=== PATIENT | male | born 1985 | race Caucasian/White ===

== ENCOUNTER 2019-08-05 17:15 | Inpatient (IN) | payer MEDICAID ==
[~2019-08-05] VITALS: Ht 172.7 cm; Wt 94.1 kg
[2019-08-05 17:51] LABS: Basophils # (auto) 0.1 uL; Basophils % (auto) 0.9 % (0.0-2.0); Eosinophils # (auto) 0.5 uL; Eosinophils % (auto) 5.3 % (0.0-7.0); Hematocrit 49.1 % (41.0-53.0); Hemoglobin 16.7 g/dL (13.5-17.5); Lymphocytes # (auto) 1.5 uL; Lymphocytes % (auto) 16.8 % (10.0-50.0); Mean Corpuscular Hemoglobin 30.2 pg (28.0-32.0); Mean Corpuscular Hgb Conc. 34.1 g/dL (32.0-36.0); Mean Corpuscular Volume 88.5 fL (80.0-100.0); Monocytes # (auto) 0.7 uL; Monocytes % (auto) 8.2 % (0.0-12.0); Neutrophils # (auto) 5.9 uL; Neutrophils % (auto) 68.8 % (37.0-80.0); Platelet Count (auto) 295 10^3/uL (140-450); Red Blood Cells 5.55 10^6/uL (4.5-5.90); Red Cell Distribution Width 13.8 % (11.8-14.3); White Blood Cell 8.6 10^3/uL (4.4-10.8)
[2019-08-05 18:06] LABS: Albumin 4.2 g/dL (3.4-5.0); BUN/Creatinine Ratio 9.1; Calcium 8.7 mg/dL (8.5-10.1); Potassium 3.8 mmol/L (3.5-5.1)
[2019-08-05 18:08] LABS: Bilirubin, Total 0.7 mg/dL (0.2-1.0); Total Protein 8.1 g/dL (6.4-8.2)
[2019-08-05 19:09] LABS: Urine Bacteria NONE SEEN /hpf (None Seen); Urine Blood Negative /uL (Negative); Urine Mucus FEW (None Seen); Urine Specific Gravity 1.031 (1.001-1.035); Urine WBC 1 /hpf (0 - 3)
[2019-08-05] MEDS ORDERED: SODIUM CHLORIDE 0.9% 1,000 ML IV ONE ×2 (22:15→23:30)
[2019-08-05] MEDS ORDERED: MORPHINE SULFATE 4 MG/ML SYR/VIAL IV ONE (22:30)
[2019-08-05] MEDS ORDERED: ONDANSETRON HCL 4 MG/2 ML VIAL IV ONE (22:30)
[2019-08-06] MEDS ORDERED: HYDROmorphone HCL 2 MG/ML VL IM ONE (01:15)
[2019-08-06] MEDS ORDERED: FAMOTIDINE (10MG/ML) 2ML VL IV ONE (01:30)
[2019-08-06] MEDS ORDERED: TEMAZEPAM 15 MG CAP PO PRN (04:15)
[2019-08-06] MEDS ORDERED: MORPHINE SULFATE 4 MG/ML SYR/VIAL IV PRN (04:15)
[2019-08-06] MEDS ORDERED: ACETAMINOPHEN 325 MG TAB PO PRN (04:15)
[2019-08-06] MEDS ORDERED: AMOX250C3 PO (06:11)
[2019-08-06] MEDS ORDERED: MORPHINE SULF INJ 2 MG/ML SYRINGE 1ML IV PRN (06:45)
--- NOTE | 2019-08-06 07:02 | NUR ---
MS admit from ER [facility] admitted to tele/MS. Patient oriented to MARCIO COE RN primary RN, unit, room, bed, and unit policies regarding patient care and visiting hours. Patient weighed by bedscale and encouraged to call if they need something. Safety measures in place bed in lowest position, side rails x2, and call light within reach. All questions and concerns addressed, patient verbalized understanding.
[2019-08-06] MEDS: HYDROcodone-ACET 5/325MG TAB PO PRN ×3 (07:16→20:52)
--- NOTE | 2019-08-06 07:30 | NUR ---
Opening Shift Note Assumed care of patient, asleep at this time. No S/S of distress/SOB or pain. Bed in lowest and locked position with side rails up x2 and call light within reach. Instructed on POC and to call for assist PRN, will continue to monitor for changes Q1hr and PRN.
[2019-08-06 08:10] VITALS: BP 113/65
[2019-08-06 09:00] VITALS: BP 113/65
[2019-08-06] MEDS: cefTRIAXone 1GM/50ML D5W 50 ML IV SCH (10:05)
[2019-08-06] MEDS: PANTOPRAZOLE 40 MG TAB PO SCH (10:05)
[2019-08-06] MEDS: SODIUM CHLORIDE 0.9% 1,000 ML IV SCH (10:06)
[2019-08-06 13:00] VITALS: BP 132/75
[2019-08-06 17:00] VITALS: BP 120/85
--- NOTE | 2019-08-06 19:45 | NUR ---
Opening Shift Note Assumed care of patient, awake and alert. No S/S of distress/SOB or pain. Safety measures in place bed in lowest position, side rails x2 up, and call light within reach. Instructed on POC and to call for assist PRN, will continue to monitor for changes Q1hr and PRN.
[2019-08-06] MEDS: ONDANSETRON HCL 4 MG/2 ML VIAL IV PRN (20:52)
[2019-08-06 22:00] VITALS: BP 108/66
[2019-08-07 05:35] LABS: Basophils # (auto) 0 uL; Basophils % (auto) 0.9 % (0.0-2.0); Eosinophils # (auto) 0.5 uL; Eosinophils % (auto) 10.4 % (0.0-7.0); Hematocrit 42.5 % (41.0-53.0); Lymphocytes # (auto) 1.6 uL; Lymphocytes % (auto) 33.2 % (10.0-50.0); Mean Corpuscular Hemoglobin 31.1 pg (28.0-32.0); Mean Corpuscular Hgb Conc. 35.2 g/dL (32.0-36.0); Mean Corpuscular Volume 88.4 fL (80.0-100.0); Monocytes # (auto) 0.5 uL; Monocytes % (auto) 9.8 % (0.0-12.0); Neutrophils # (auto) 2.2 uL; Neutrophils % (auto) 45.7 % (37.0-80.0); Nucleated Red Blood Cells % 0.2 %; Platelet Count (auto) 209 10^3/uL (140-450); Red Blood Cells 4.81 10^6/uL (4.5-5.90); Red Cell Distribution Width 13.3 % (11.8-14.3); White Blood Cell 4.9 10^3/uL (4.4-10.8)
[2019-08-07 05:45] VITALS: BP 118/75
[2019-08-07 06:02] LABS: Albumin 3.3 g/dL (3.4-5.0); Potassium 3.9 mmol/L (3.5-5.1)
[2019-08-07 06:30] LABS: BUN/Creatinine Ratio 6.1; Bilirubin, Total 0.7 mg/dL (0.2-1.0); Total Protein 6.4 g/dL (6.4-8.2)
--- NOTE | 2019-08-07 07:33 | NUR ---
Opening Shift Note Assumed care of patient, awake and alert. No S/S of distress/SOB. Pt rated pain at a 6/10. Bed in lowest and locked position with side rails up x2 and call light within reach. Instructed on POC and to call for assist PRN, will continue to monitor for changes Q1hr and PRN.
[2019-08-07] MEDS: PANTOPRAZOLE 40 MG TAB PO SCH (08:54)
[2019-08-07] MEDS: cefTRIAXone 1GM/50ML D5W 50 ML IV SCH (08:54)
[2019-08-07 09:00] VITALS: BP 128/70
--- NOTE | 2019-08-07 10:40 | NUR ---
SPOKE TO DR. NG. NEW ORDERS RECEIVED, READ BACK AND VERIFIED TO ADVANCE DIET TOLERATED.
[2019-08-07 13:00] VITALS: BP 129/71
--- NOTE | 2019-08-07 13:30 | NUR ---
PATIENT STATED "I FEEL NAUSEATED FROM THE LUNCH I ATE". PATIENT DIET NOT ADVANCED DUE TO PATIENT NOT TOLERATING LUNCH.
[2019-08-07] MEDS: ONDANSETRON HCL 4 MG/2 ML VIAL IV PRN (13:43)
[2019-08-07] MEDS: SODIUM CHLORIDE 0.9% 1,000 ML IV SCH ×2 (13:44)
[2019-08-07 17:00] VITALS: BP 115/60
[2019-08-07 21:00] VITALS: BP 117/69
[2019-08-08] MEDS: SODIUM CHLORIDE 0.9% 1,000 ML IV SCH (01:30)
[2019-08-08 04:30] VITALS: BP 112/65
--- NOTE | 2019-08-08 07:30 | NUR ---
Opening Shift Note Assumed care of patient, who is alert and oriented x4. No S/S of distress/SOB or pain. IV to the left forearm is patent and intact. Bed is low, locked with 2x side rails up. Call light is within reach. Instructed on POC and to call for assist PRN, will continue to monitor for changes Q1hr and PRN.
[2019-08-08] MEDS: cefTRIAXone 1GM/50ML D5W 50 ML IV SCH (08:54)
[2019-08-08] MEDS: PANTOPRAZOLE 40 MG TAB PO SCH (08:55)
[2019-08-08 09:00] VITALS: BP 142/76
[2019-08-08 10:41] VITALS: BP 142/76
--- NOTE | 2019-08-08 11:33 | NUR ---
Discharge instructions given as ordered. Encourage to follow up with PMD as instructed. All questions and concerns addressed. Patient verbalized understanding. IV removed with catheter intact, pressure dressing applied. Patient ambulated to vehicle with all personal belongings. No distress noted at time of departure.
== END 2019-08-08 11:25 | disposition home or self-care (01) | DRG 241 ==
LOC: ER 17:17 → OVERFLOW 17:18 → EAST 08-06 06:14
PROVIDERS: ADMIT Nurse Practitioner; ATTEND Internal Medicine
DX: K29.00 Acute gastritis without bleeding (principal); E44.1 Mild protein-calorie malnutrition; K52.9 Noninfective gastroenteritis and colitis, unspecified; E88.09 Other disorders of plasma-protein metabolism, not elsewhere classified; E86.0 Dehydration; Z82.49 Family history of ischemic heart disease and other diseases of the circulatory system; Z68.31 Body mass index [BMI] 31.0-31.9, adult
CPT/HCPCS: 36415; 71045; 74176; 80053; 81001; 83690; 85025; 96372; 96374; 96375; G0378; J0696; J2405; J3490